=== PATIENT | female | born 1990 | race Caucasian/White ===

== ENCOUNTER 2023-10-22 09:57 | Observation (INO) | payer OTHER ==
[~2023-10-22] VITALS: Ht 160 cm; Wt 67.1 kg
[~2023-10-22 09:57] MED LIST: ADDE20CA3 PO; ADDE30CA3 PO; CEFD1CAP9 PO; LEVO100T5 PO; THERTAB52 PO
[2023-10-22] MEDS ORDERED: propofoL 200 MG/20 ML VIAL As Ordered ONE (10:17)
[2023-10-22] MEDS ORDERED: ROCURONIUM BROMIDE 50MG/5ML VIAL As Ordered ONE (10:17)
[2023-10-22] MEDS ORDERED: MIDAZOLAM INJ 2MG/2ML VIAL As Ordered ONE (10:17)
[2023-10-22] MEDS ORDERED: ONDANSETRON 4MG 2ML VIAL As Ordered ONE (10:17)
[2023-10-22] MEDS ORDERED: fentaNYL 250 MCG/5 ML INJECTION As Ordered ONE (10:17)
[2023-10-22] MEDS ORDERED: SUGAMMADEX SODIUM 500 MG/5 ML VIAL (BRIDION) As Ordered ONE (10:17)
[2023-10-22] MEDS ORDERED: LIDOCAINE 2% 100MG/5ML SDV (FOR ANES.) As Ordered ONE (10:17)
[2023-10-22] MEDS ORDERED: dexmedeTOMIDine (4MCG/ML)200MCG/50ML BTL (PRECEDEX) As Ordered ONE (10:17)
[2023-10-22] MEDS ORDERED: LR 1,000 ML IV SCH ×2 (10:35→16:30)
[2023-10-22] MEDS ORDERED: VENTAER INH (12:51)
[2023-10-22] MEDS ORDERED: HOME MED LIST COMPLETE! XX SCH (12:55)
[2023-10-22 13:24] LABS: HEMATOCRIT 31.9 % (36.0-47.0); HEMOGLOBIN 10.1 g/dl (12.0-15.5); MEAN CORPUSCULAR HGB CONC 31.7 g/dl (32.0-36.5); PLATELET COUNT, AUTOMATED 349 10^3/uL (150-450)
[2023-10-22] MEDS ORDERED: PHENYLephrine 500MCG 5ML (100MCG/ML) SYRINGE As Ordered ONE (13:33)
[2023-10-22] MEDS: ceFAZolin SOD 2 GM in IV 1 EA IV ONE (13:34)
[2023-10-22] MEDS: HEPARIN SOD (PORCINE) 5000UNITS/ML 1ML VIAL/SYRINGE SQ ONE (13:35)
[2023-10-22] MEDS ORDERED: LACRILUBE (AKWA TEARS) OPHTH OINT 3.5GM As Ordered ONE (13:57)
[2023-10-22] MEDS: GENTAMICIN SULF 80MG/2ML VIAL As Ordered ONE (14:06)
[2023-10-22] MEDS ORDERED: HYDROmorphone HCL 2MG/ML 1ML VIAL As Ordered ONE (14:22)
[2023-10-22] MEDS ORDERED: ACETAMINOPHEN 1000MG 100ML IV BAG As Ordered ONE (14:32)
[2023-10-22] MEDS ORDERED: METOCLOPRAMIDE INJ 10MG/2ML VIAL As Ordered ONE (14:35)
[2023-10-22] MEDS ORDERED: ePHEDrine SULFATE 25 MG/5 ML(5MG/ML) SYRINGE As Ordered ONE (15:33)
[2023-10-22] MEDS ORDERED: ONDANSETRON 4MG 2ML VIAL IV PRN ×2 (16:30→17:05)
[2023-10-22] MEDS ORDERED: fentaNYL 100 MCG/2 ML INJECTION IV PRN (16:30)
[2023-10-22] MEDS ORDERED: HYDROMORPHONE HCL 0.5 MG/ 0.5 ML SYRINGE IV PRN (16:30)
[2023-10-22] MEDS ORDERED: ACETAMINOPHEN TAB 650MG DOSE (2X325MG) PO PRN (17:05)
[2023-10-22] MEDS ORDERED: ALBUTEROL 90 MCG/ACT 8GM HFA INHALER INH PRN (17:05)
[2023-10-22] MEDS: oxyCODONE 5MG TAB PO PRN (17:30)
[2023-10-22 18:00] VITALS: BP 129/74; TEMP 97.5; O2SAT 100
[2023-10-22] MEDS: LR 1,000 ML IV SCH (18:04)
[2023-10-22 19:30] VITALS: BP 115/69; TEMP 98.1; O2SAT 98
[2023-10-22] MEDS: ceFAZolin SOD 1 GM in D5W MINI-BAG PLUS 50 ML IV SCH (19:56)
[2023-10-22] MEDS: PERCOCET 5MG/325MG TAB PO PRN (19:56)
[2023-10-22] MEDS: FERROUS SULFATE 325MG TAB PO SCH (19:56)
[2023-10-22 20:30] VITALS: BP 119/73; TEMP 98.4; O2SAT 99
[2023-10-22 21:30] VITALS: BP 102/63; TEMP 97.7; O2SAT 99
[2023-10-22 22:30] VITALS: BP 99/56; TEMP 98.1; O2SAT 98
[2023-10-23 02:30] VITALS: BP 82/50; TEMP 98.1; O2SAT 97
[2023-10-23 02:38] VITALS: BP 90/60
[2023-10-23 03:31] VITALS: BP 80/60
[2023-10-23 03:39] VITALS: BP 94/58
[2023-10-23] MEDS: traMADol 50 MG TAB PO PRN (05:22)
[2023-10-23 06:00] VITALS: BP 95/56; TEMP 98.1; O2SAT 98
[2023-10-23] MEDS: LEVOTHYROXINE 100MCG TABLET (0.1MG) PO SCH (08:24)
[2023-10-23 08:34] LABS: HEMATOCRIT 26.9 % (36.0-47.0); HEMOGLOBIN 8.5 g/dl (12.0-15.5); MEAN CORPUSCULAR HGB CONC 31.6 g/dl (32.0-36.5); PLATELET COUNT, AUTOMATED 311 10^3/uL (150-450); RED BLOOD COUNT 3.54 10^6/uL (4.00-5.40); WHITE BLOOD COUNT 9.7 10^3/uL (4.0-10.0)
[2023-10-23 10:22] VITALS: BP 95/58; TEMP 97.9; O2SAT 99
[2023-10-23] MEDS ORDERED: PERCOCET PO (11:36)
== END 2023-10-23 13:50 | disposition home or self-care (01) ==
LOC: M SDC 09:57 → M ED INP 09:58 → M MS5PR 18:05
PROVIDERS: ADMIT Plastic Surgery Surgery of the Hand; ATTEND Plastic Surgery Surgery of the Hand
DX: M54.06 Panniculitis affecting regions of neck and back, lumbar region (principal); M62.08 Separation of muscle (nontraumatic), other site; Z98.84 Bariatric surgery status; Z79.899 Other long term (current) drug therapy; Z91.040 Latex allergy status; Z91.041 Radiographic dye allergy status
CPT/HCPCS: 15830; 36415; 81025; 85027; 88300; 96374; 96376; C9290; J0131; J0665; J0690; J1100; J1170; J1580; J2250; J2371; J2405; J2765; J3010

== ENCOUNTER 2023-12-01 08:36 | Inpatient (IN) | payer OTHER ==
[~2023-12-01] VITALS: Ht 157.5 cm; Wt 67.6 kg
[2023-12-01] VITALS (46 sets, daily range): BP systolic 79–113; BP diastolic 49–79; PULSE 68; TEMP 98.4–99.1; O2SAT 98–100
[2023-12-01] MEDS: LEVOTHYROXINE 100MCG TABLET (0.1MG) PO SCH (06:00)
[~2023-12-01 08:36] MED LIST changes: +PERCOCET PO; +VENTAER INH
[2023-12-01] MEDS: LR 1,000 ML IV SCH (12:10)
[2023-12-01] MEDS: NOREPINEPHRINE 4MG IN D5 250ML 4 MG in IV 1 EA IV SCH (12:11)
[2023-12-01] MEDS ORDERED: AMPH1CAP16 PO (12:12)
[2023-12-01] MEDS ORDERED: IRON65TA2 PO (12:13)
[2023-12-01] MEDS ORDERED: FERR324T12 PO (12:18)
[2023-12-01] MEDS ORDERED: HOME MED LIST COMPLETE! XX SCH (12:20)
[2023-12-01] MEDS: HEPARIN SOD (PORCINE) 5000UNITS/ML 1ML VIAL/SYRINGE SC SCH (13:07)
[2023-12-01 14:27] LABS: BASO % 0.1 % (0.0-1.0); HEMATOCRIT 24.9 % (36.0-47.0); HEMOGLOBIN 7.8 g/dl (12.0-15.5); LYMPH # 0.3 10^3/uL (1.5-5.0); LYMPH % 3.3 % (24.0-44.0); MEAN CORPUSCULAR HEMOGLOBIN 22.7 pg (27.0-33.0); MEAN CORPUSCULAR HGB CONC 31.3 g/dl (32.0-36.5); MEAN CORPUSCULAR VOLUME 72.4 fl (80.0-96.0); MONO # 0.1 10^3/uL (0.0-0.8); MONO % 0.8 % (2.0-8.0); NEUTROPHILS # 9.2 10^3/uL (1.5-8.5); NEUTROPHILS % 95.3 % (36.0-66.0); PLATELET COUNT, AUTOMATED 435 10^3/uL (150-450); RED BLOOD COUNT 3.44 10^6/uL (4.00-5.40); WHITE BLOOD COUNT 9.7 10^3/uL (4.0-10.0)
[2023-12-01 14:49] LABS: ALBUMIN 2.9 G/DL (3.2-5.2); ALKALINE PHOSPHATASE 73 U/L (46-116); ALT/SGPT 40 U/L (7.0-40); AST/SGOT 44 U/L (<34); BILIRUBIN,TOTAL 0.7 MG/DL (0.3-1.2); BLOOD UREA NITROGEN 7 MG/DL (9-23); CALCIUM LEVEL 7.7 MG/DL (8.5-10.1); CARBON DIOXIDE LEVEL 18 MMOL/L (20-31); CHLORIDE LEVEL 111 MMOL/L (98-107); CREATININE FOR GFR 0.54 MG/DL (0.55-1.30); GLOMERULAR FILTRATION RATE > 60.0 (>60); GLUCOSE, FASTING 149 MG/DL (60-100); MAGNESIUM LEVEL 1.7 MG/DL (1.8-2.4); PHOSPHORUS LEVEL 3.5 MG/DL (2.5-4.9); POTASSIUM SERUM 4.2 MMOL/L (3.5-5.1); SODIUM LEVEL 137 MMOL/L (136-145); TOTAL PROTEIN 5.3 G/DL (5.7-8.2)
[2023-12-01 14:51] LABS: FREE T4 0.83 NG/DL (0.89-1.76)
[2023-12-01] MEDS: ACETAMINOPHEN TAB 650MG DOSE (2X325MG) PO PRN (15:33)
[2023-12-01] MEDS: VANCOMYCIN HCL 1,000 MG, VIAL MATE ADAPTER 1 EACH in D5W 250 ML IV SCH (15:34)
[2023-12-01 15:36] LABS: VANCOMYCIN RANDOM 7.4 UG/ML
[2023-12-01] MEDS: MUPIROCIN 2% OINT 22 GM TUBE TOP SCH (15:36)
[2023-12-01] MEDS: MAG SULF 1GM/100ML (MAG RUN) 1 GM in IV 1 EA IV ONE (16:55)
[2023-12-01] MEDS: ENOXAPARIN 80MG/0.8ML SYRINGE (J1650 PER 10MG) SC SCH (21:23)
[2023-12-02] VITALS (26 sets, daily range): BP systolic 83–134; BP diastolic 51–73; TEMP 98–99; O2SAT 94–100
[2023-12-02 07:59] LABS: BASO % 0.2 % (0.0-1.0); EOS # 0.2 10^3/uL (0.0-0.5); EOS % 2.7 % (0.0-3.0); HEMATOCRIT 22.6 % (36.0-47.0); LYMPH # 1.4 10^3/uL (1.5-5.0); LYMPH % 22.6 % (24.0-44.0); MEAN CORPUSCULAR HEMOGLOBIN 22.9 pg (27.0-33.0); MEAN CORPUSCULAR VOLUME 73.9 fl (80.0-96.0); MONO # 0.4 10^3/uL (0.0-0.8); MONO % 6.5 % (2.0-8.0); NEUTROPHILS # 4.1 10^3/uL (1.5-8.5); NEUTROPHILS % 67.7 % (36.0-66.0); RED BLOOD COUNT 3.06 10^6/uL (4.00-5.40)
[2023-12-02 08:00] LABS: ALBUMIN 2.8 G/DL (3.2-5.2); ALKALINE PHOSPHATASE 61 U/L (46-116); ALT/SGPT 32 U/L (7.0-40); AST/SGOT 19 U/L (<34); BILIRUBIN,DIRECT 0.2 MG/DL (<0.4); BILIRUBIN,TOTAL 0.4 MG/DL (0.3-1.2); BLOOD UREA NITROGEN 6 MG/DL (9-23); CARBON DIOXIDE LEVEL 23 MMOL/L (20-31); CHLORIDE LEVEL 112 MMOL/L (98-107); CREATININE FOR GFR 0.58 MG/DL (0.55-1.30); GLOMERULAR FILTRATION RATE > 60.0 (>60); GLUCOSE, FASTING 87 MG/DL (60-100); POTASSIUM SERUM 3.8 MMOL/L (3.5-5.1); SODIUM LEVEL 140 MMOL/L (136-145); TOTAL PROTEIN 5.2 G/DL (5.7-8.2)
[2023-12-02 08:01] LABS: PLATELET COUNT, AUTOMATED 291 10^3/uL (150-450)
[2023-12-02] MEDS: AMPHETAMINE/DEXTROAMPHETAMINE 5 MG *ER* CAPSULE (ADDERALL XR) PO SCH ×2 (08:11→10:16)
[2023-12-02] MEDS: FERROUS GLUCONATE 324 MG TAB PO SCH (08:11)
[2023-12-02 15:28] LABS: IRON (FE) < 5 UG/DL (50-170); PERCENT SATURATION 1.7 % (13.2-45.0); TOTAL IRON BINDING CAPACITY 286 UG/DL (250-425)
[2023-12-02 15:32] LABS: VITAMIN B12 LEVEL 473 PG/ML (211-911)
[2023-12-02 15:33] LABS: FERRITIN 11.7 NG/ML (7.3-270.7)
[2023-12-02] MEDS: MULTIVITAMINS/MINERALS THERAP 1 TAB PO SCH (16:19)
[2023-12-02] MEDS: FERRIC CARBOXYMALTOSE INJ 750 MG, VIAL MATE ADAPTER 1 EACH in NS 250 ML IV ONE (21:29)
[2023-12-02] MEDS: HEPARIN SOD (PORCINE) 5000UNITS/ML 1ML VIAL/SYRINGE SQ SCH (21:30)
[2023-12-03 00:26] VITALS: BP 106/66; TEMP 98.1; O2SAT 100
[2023-12-03 04:06] VITALS: BP 98/62; TEMP 97.4; O2SAT 100
[2023-12-03 07:36] LABS: BASO % 0.2 % (0.0-1.0); EOS # 0.3 10^3/uL (0.0-0.5); EOS % 7.7 % (0.0-3.0); HEMATOCRIT 23.9 % (36.0-47.0); HEMOGLOBIN 7.4 g/dl (12.0-15.5); LYMPH # 1.2 10^3/uL (1.5-5.0); LYMPH % 29.4 % (24.0-44.0); MEAN CORPUSCULAR HEMOGLOBIN 22.7 pg (27.0-33.0); MEAN CORPUSCULAR VOLUME 73.3 fl (80.0-96.0); MONO # 0.4 10^3/uL (0.0-0.8); MONO % 8.7 % (2.0-8.0); NEUTROPHILS # 2.2 10^3/uL (1.5-8.5); NEUTROPHILS % 53.8 % (36.0-66.0); PLATELET COUNT, AUTOMATED 309 10^3/uL (150-450); RED BLOOD COUNT 3.26 10^6/uL (4.00-5.40); WHITE BLOOD COUNT 4.2 10^3/uL (4.0-10.0)
[2023-12-03 07:50] LABS: VANCOMYCIN LEVEL TROUGH 15.7 UG/ML (10.0-20.0)
[2023-12-03 07:57] LABS: BLOOD UREA NITROGEN 16 MG/DL (9-23); CALCIUM LEVEL 8.7 MG/DL (8.5-10.1); CARBON DIOXIDE LEVEL 29 MMOL/L (20-31); CHLORIDE LEVEL 107 MMOL/L (98-107); CREATININE FOR GFR 0.56 MG/DL (0.55-1.30); GLOMERULAR FILTRATION RATE > 60.0 (>60); GLUCOSE, FASTING 75 MG/DL (60-100); MAGNESIUM LEVEL 1.9 MG/DL (1.8-2.4); POTASSIUM SERUM 4.1 MMOL/L (3.5-5.1); SODIUM LEVEL 140 MMOL/L (136-145)
[2023-12-03 08:15] VITALS: BP 104/72; TEMP 96.7; O2SAT 100
[2023-12-03] MEDS ORDERED: DOXY100C3 PO (10:58)
== END 2023-12-03 14:40 | disposition home or self-care (01) | DRG 196 ==
LOC: M ICU 11:35 → M PCU 12-02 18:03
PROVIDERS: ADMIT Internal Medicine Pulmonary Disease; ATTEND Student in an Organized Health Care Education/Training Program
PROC: B246ZZZ Ultrasonography of Right and Left Heart (ICD-10-PCS; principal; 2023-12-01)
DX: R57.1 Hypovolemic shock (principal); I27.20 Pulmonary hypertension, unspecified; F10.20 Alcohol dependence, uncomplicated; E53.8 Deficiency of other specified B group vitamins; D50.0 Iron deficiency anemia secondary to blood loss (chronic); E03.9 Hypothyroidism, unspecified; F90.9 Attention-deficit hyperactivity disorder, unspecified type; M79.7 Fibromyalgia; R91.8 Other nonspecific abnormal finding of lung field; N93.9 Abnormal uterine and vaginal bleeding, unspecified; Z79.890 Hormone replacement therapy; Z79.899 Other long term (current) drug therapy; Z91.040 Latex allergy status; Z91.041 Radiographic dye allergy status; Z90.49 Acquired absence of other specified parts of digestive tract; Z98.84 Bariatric surgery status; Z98.890 Other specified postprocedural states